=== PATIENT | female | born 1970 | race Caucasian/White ===

== ENCOUNTER 2018-03-15 09:10 | Day surgery (SDC) | payer OTHER ==
[2018-03-15] MEDS ORDERED: FENTAnyl 50 MCG/ML VIAL (11:54)
[2018-03-15] MEDS ORDERED: MIDAZOLAM 1 MG/ML 2 ML INJ ×2 (11:54)
== END 2018-03-15 16:06 | disposition home or self-care (01) ==
LOC: GIL 09:10
DX: K20.9 Esophagitis, unspecified (principal); K29.50 Unspecified chronic gastritis without bleeding
CPT/HCPCS: 43239; 84703; 88305; 88312